=== PATIENT | male | born 1975 | race Caucasian/White ===

== ENCOUNTER 2017-03-16 17:16 | Emergency (ER) | payer SELFPAY ==
[~2017-03-16] VITALS: Ht 193 cm; Wt 104.9 kg
[2017-03-16 17:16] VITALS: O2SAT 93; Ht 193 cm; Wt 104.9 kg
[~2017-03-16 17:16] MED LIST: DENIES; LANS30CA12 PO
--- NOTE | 2017-03-16 18:10 | EMERGENCY ROOM VISIT NOTE ---
History First contact with patient: 17:20 Chief Complaint: ALCOHOL OVERDOSE Stated Complaint: ETOH Nursing Triage Summary: Patient arrived via EMS in handcuffs with [employer]. Awake, alert, slurring words, unsteady. EMS reports patient was found at [facility] with a spilled beer next to him, he was initially unresponsive, but did wake up and stated that that he drank "hundreds" of beers. Patient reports to RN that he "drank a 30 pack, or actually a 40 pack" and started drinking at "7". Pt states today is 2016, March and is at [facility]. PT denies falls, no injuries noted. History of Present Illness The patient is a 41 year old male who presents to the Emergency Room with complaints of alcohol overdose. The patient was brought in by police in handcuffs. He is belligerent and uncooperative with my history and physical. He did tell the ER and that he drank a 40 pack of beer since last night. The patient was found sitting on the street with an alcoholic beverage, disheveled in appearance. The patient currently denies any pain or injury. Review of Systems Unable to perform Past Medical/Surgical History Patient denies any medical history Family History Unable to obtain Social History Smoking Status: Current Every Day Smoker Alcohol Use: heavy Current/Historical Medications Unable to Obtain Active Prescriptions or Reported Meds Allergies Uncoded Allergies: NKDA (Allergy, Mild, 11/10/07) Physical Exam Vital Signs Date Time Temp Pulse Resp B/P (MAP) Pulse Ox O2 Delivery O2 Flow Rate FiO2 03/16/17 22:16 106 03/16/17 22:15 103 23 93 Room Air 03/16/17 22:01 03/16/17 21:45 103 18 92 03/16/17 21:31 03/16/17 21:15 102 20 91 03/16/17 21:01 03/16/17 20:45 103 16 91 03/16/17 20:42 104 18 106/60 92 Room Air 03/16/17 19:26 104 18 94 Room Air 03/16/17 18:46 104 24 117/68 94 Room Air 03/16/17 18:10 111 18 126/69 94 Room Air 03/16/17 18:10 112 03/16/17 17:16 93 Room Air 03/16/17 17:16 37.2 120 22 146/85 93 Room Air Physical Exam Exam is limited, because the patient is not cooperative VITALS: Vitals are noted on the nurse's note and reviewed by myself. Vital signs stable. GENERAL: 41-year-old male, obviously intoxicated, disheveled in appearance and irritated. SKIN: The skin was without rashes, erythema, edema, or bruising. HEAD: Normocephalic atraumatic. EYES: Pupils equal round and reactive to light and accommodation. MOUTH: Mucous membranes dry. HEART: Tachycardic, regular rate and rhythm without murmurs gallops or rubs. LUNGS: Clear to auscultation bilaterally without wheezes, rales or rhonchi. No accessory muscle use. ABDOMEN: Positive bowel sounds x 4.Soft, nontender, without organomegaly. No guarding or rebound tenderness. MUSCULOSKELETAL: No muscle atrophy, erythema, or edema noted.. No tenderness to palpation. NEURO: Patient was alert but inebriated. Medical Decision & Procedures Laboratory Results 03/16/17 18:04 Test 03/16/17 18:04 Anion Gap 10.0 mmol/L (3-11) Est Creatinine Clear Calc Drug Dose 155.8 ml/min Estimated GFR () 126.7 Estimated GFR (Non- 109.3 BUN/Creatinine Ratio 14.0 (10-20) Calcium Level 8.9 mg/dl (8.5-10.1) Ethyl Alcohol mg/dL 315.0 mg/dl (0-3) ED Course The patient was seen and examined with security at the bedside The patient was put on a monitor. The patient initially refused blood work. Once he was seen by Dr. oBston, he was agreeable. The patient was reassessed. He was encouraged to try to find a ride home. He refused. The patient's labs were reviewed. His alcohol level was significantly elevated at 315 mg/dl at 1800 The patient was observed in the ER until he was more coherent. He was then Instructed that he could leave the emergency department by taxicab or ride. Medical Decision Differential diagnosis: Alcohol intoxication, overdose, withdrawal, other drug intoxication, injury This patient is a 41-year-old male that presented to the emergency department escorted by police with complaints of severe alcohol intoxication. The patient was found on the street visibly intoxicated with an alcoholic beverage his hand. He was disheveled in appearance, however he does not have any noticeable injuries. His alcohol level was significantly elevated at 315 at 1800 hrs. He refused to call for a ride. The patient was monitored in the emergency department until he was more coherent. He was then informed that he could leave the emergency department by taxi cab or ride. Discharge instructions were thoroughly reviewed. He voiced understanding and was discharged in good condition. Impression Primary Impression: Alcohol intoxication with blood level over 0.3 Departure Information Dispostion Home / Self-Care Condition FAIR Prescriptions Unable to Obtain Active Prescriptions or Reported Meds Referrals No Doctor, Assigned (PCP) Forms HOME CARE DOCUMENTATION FORM, IMPORTANT VISIT INFORMATION Patient Instructions ED Overdose Alcohol, My [facility] Additional Instructions You were sent to the hospital by the police for being visibly intoxicated and being uncooperative with police. Your alcohol level was significantly elevated. Do not drink alcohol in excess. Do not have any alcoholic beverages for at least 72 hours. Stay well hydrated. Take ibuprofen 400 mg every 6 hours as needed for pain/ headache Follow-up with her primary care physician within one week
[2017-03-16 18:31] LABS: CALCIUM 8.9 mg/dl (8.5-10.1); CREATININE 0.83 mg/dl (0.60-1.40)
--- NOTE | 2017-03-17 00:49 | EMERGENCY ROOM VISIT NOTE ---
ED Visit Note First contact with patient: 00:48 I received this patient at change of shift signout from SATNAM Aleman. Please see her note for complete history and physical. The patient is a 41-year- old male who presented to the emergency department for an evaluation of alcohol intoxication. The patient had a very elevated alcohol level in the emergency department. He was reevaluated multiple times. On my final reevaluation patient was awake alert in no longer clinically intoxicated. He was able to be discharged but was advised to go directly home and avoid any further alcoholic beverages. He was also encouraged to drink plenty clear liquids. He was also encouraged to avoid operating any heavy machinery including driving a vehicle for next 24 hours.
[2017-03-17 00:54] VITALS: BP 109/78; PULSE 105; TEMP 37.2; O2SAT 95
== END 2017-03-17 00:54 | disposition home or self-care (01) ==
LOC: EDBD 17:16 → C.EDB 17:17
DX: F10.129 Alcohol abuse with intoxication, unspecified (principal); F17.200 Nicotine dependence, unspecified, uncomplicated